=== PATIENT | male | born 1955 | race African-American/Black ===

== ENCOUNTER 2017-10-15 12:13 | Inpatient (IN) | payer OTHER ==
--- NOTE | 2017-10-15 13:59 | PDOC ---
Attending Attestation - HPI HPI: 10/15/17 14:54 The patient is a 62 year old male with history of lower extremity ulcers sent from Wound Care for hospital admission for IV antibiotics to treat LLE cellulitis. He was noted to worsening LLE swelling and erythema with blistering for left foot ulcer. The patient does report subjective fever. No nausea, vomiting, or diaphoresis. <Serenity Cuevas - Last Filed: 10/15/17 15:03> - Resident Resident Name: CarolinaKarolyn - ED Attending Attestation I have performed the following: I have examined & evaluated the patient, The case was reviewed & discussed with the resident, I agree w/resident's findings & plan, Exceptions are as noted - Physicial Exam PE: GENERAL: Awake, alert, and fully oriented, in no acute distress HEAD: No signs of trauma EYES: PERRLA, EOMI, sclera anicteric, conjunctiva clear ENT: Auricles normal inspection, hearing grossly normal, nares patent, oropharynx clear without exudates. Moist mucosa NECK: Normal ROM, supple, no lymphadenopathy, JVD, or masses LUNGS: Breath sounds equal, clear to auscultation bilaterally. No wheezes, and no crackles HEART: Regular rate and rhythm, normal S1 and S2, no murmurs, rubs or gallops ABDOMEN: Soft, nontender, normoactive bowel sounds. No guarding, no rebound. No masses EXTREMITIES: Normal range of motion, +edema, warmth to L foot. +Skin ulcer to side of second toe, no active drainage. No clubbing or cyanosis. No cords, tenderness. NEUROLOGICAL: Cranial nerves II through XII grossly intact. Normal speech. Motor and sensation intact. SKIN: Warm, Dry, normal turgor, no rashes. - Medical Decision Making Pt sent for admission for LLE venous stasis ulcer with cellulitis. He is not diabetic. Started with unasyn and vanco in ED. Wound culture was sent by Dr. Torres prior to ED arrival. Will send basic labs and blood cultures, obtain XR to r/o subcutaneous gas. <Michelle Grant - Last Filed: 10/17/17 10:19>
--- NOTE | 2017-10-15 14:24 | PDOC ---
History of Present Illness - General Chief Complaint: Wound Stated Complaint: TOE WOUND, LAB VARIANCE (WOUND CARE SENT) Time Seen by Provider: 10/15/17 13:59 History Source: Patient Exam Limitations: No Limitations - History of Present Illness Initial Comments: 10/15/17 14:17 62 y/o M with PMH RLE, LLE malleolar ulcers, who was sent to the ED by Wound Care clinic/Dr. Torres for further evaluation of LLE cellulitis. As per patient, over the past week, he has noticed increased edema, erythema and blister formation in his L lateral foot. His blister is approximately 1x0.5in and was fluctuant with yellow pus before his wound care visit. Once his wound was swabbed for cx, most of the pus was removed. Pt also endorses chronic (3 wk) wound on his L second toe with blister formation, which he also had a wound cx completed for, and generalized pain in such affected areas. He also endorses subjective fevers. Otherwise, he denies recent trauma to extremities, ANTHONY, chills , or changes in urinary or bowel function. PMH: as above PsxH: denies meds: none FH: mother's side of family - DM SH: works for [employer] for [employer]. Denies cigarette, alcohol, or recreational drug use. Past History - Past Medical History Allergies/Adverse Reactions: Allergies Allergy/AdvReac Type Severity Reaction Status Date / Time No Known Allergies Allergy Verified 10/15/17 12:37 Home Medications: Ambulatory Orders Silver Sulfadiazine [Silvadene] 85 gm TP DAILY #1 cream..g. 04/30/17 Anemia: No Asthma: No Cancer: No Cardiac Disorders: No CVA: No COPD: No CHF: No Dementia: No Diabetes: No GI Disorders: No Disorders: No HTN: No Hypercholesterolemia: No Liver Disease: No Seizures: No Thyroid Disease: No - Surgical History Abdominal Surgery: No Appendectomy: No Cardiac Surgery: No Cholecystectomy: No Lung Surgery: No Neurologic Surgery: No Orthopedic Surgery: No - Immunization History Immunization Up to Date: Yes - Suicide/Smoking/Psychosocial Hx Smoking History: Never smoked Have you smoked in the past 12 months: No Information on smoking cessation initiated: No Hx Alcohol Use: No Drug/Substance Use Hx: No Substance Use Type: None Review of Systems - Review of Systems Able to Perform ROS?: Yes Is the patient limited Greek proficient: No Constitutional: Yes: Fever Musculoskeletal: Yes: Muscle Pain Integumentary: Yes: Erythema All Other Systems: Reviewed and Negative *Physical Exam - Vital Signs Last Vital Signs Temp Pulse Resp BP Pulse Ox 98.0 F 65 16 129/67 100 10/15/17 12:37 10/15/17 12:37 10/15/17 12:37 10/15/17 12:37 10/15/17 12:37 - Physical Exam Comments: 10/15/17 14:32 in no acute distress General Appearance: Yes: Nourished HEENT: positive: EOMI, PHILIP Neck: positive: Supple Respiratory/Chest: positive: Lungs Clear, Normal Breath Sounds Cardiovascular: positive: Regular Rhythm, Regular Rate, S1, S2 Vascular Pulses: Dorsalis-Pedis (R): 2+, Doralis-Pedis (L): 2+ Gastrointestinal/Abdominal: positive: Normal Bowel Sounds, Flat, Soft Extremity: positive: Pedal Edema (+LLE edema, erythema, 1x0.5), Other (+L lateral foot - mildly fluctuant blister, with yellow pus, surrounding erythema. 1.5x1 inch. L 2nd toe - blister, with erythema, granulation tissue noted ) ED Treatment Course - LABORATORY CBC & Chemistry Diagram: 10/15/17 14:59 10/15/17 14:59 Medical Decision Making - Medical Decision Making 10/15/17 15:15 62 y/o M with PMH RLE, LLE malleolar ulcers, who was sent to the ED by Wound Care clinic/Dr. Torres for further evaluation of LLE cellulitis. As per patient, over the past week, he has noticed increased edema, erythema and blister formation in his L lateral foot. Pt to be treated for cellulitis. Will get labs - cbc, cmp, wound cx has already been sent. will also give a dose of unasyn 3g, vanco 1.25g - loading dose 15mg/kg x 1 will also send L foot XR - r/o OM 10/15/17 16:21 leukopenic - 3.6 rest of labs WNL will need admission for IV Abx 10/15/17 17:22 Case d/w Daylin will place in med-surg ID consult- Dr. Fox *DC/Admit/Observation/Transfer Diagnosis at time of Disposition: Cellulitis Qualifiers: Site of cellulitis: other site Qualified Code(s): L03.818 - Cellulitis of other sites - Discharge Dispostion Condition at time of disposition: Guarded Admit: Yes - Referrals - Patient Instructions - Post Discharge Activity
[2017-10-15 15:18] LABS: BASO % 0.6 % (0-2.0); EOS % 7.3 % (0-4.5); HEMATOCRIT 37.6 % (35.4-49); HEMOGLOBIN 12.5 GM/dL (11.7-16.9); LYMPH % 26.8 % (8-40); MCHC 33.3 g/dl (32.0-35.9); MEAN PLT VOLUME 8.7 fl (7.5-11.1); MONO % 14.1 % (3.8-10.2); NEUT % 51.2 % (42.8-82.8); PLATELET COUNT 179 K/MM3 (134-434); RBC 4.18 M/mm3 (4.00-5.60); RDW 15.1 % (11.9-15.9); WHITE BLOOD COUNT 3.6 K/mm3 (4.0-10.0)
[2017-10-15] MEDS: AMPICILLIN NA/SULBACTAM NA 3 GM in SODIUM CHLORIDE 100 ML IVPB ONE ×2 (15:36→17:26)
[2017-10-15] MEDS: VANCOMYCIN 1,250 MG in DEXTROSE 5%-WATER - 250 ML IVPB ONE ×2 (15:36→17:27)
[2017-10-15 15:43] LABS: ALBUMIN 3.4 g/dl (3.4-5.0); ALK PHOS 77 U/L (45-117); ANION GAP 5 (8-16); BILIRUBIN,TOTAL 1.1 mg/dL (0.2-1.0); BLOOD UREA NITROGEN 13 mg/dL (7-18); CALCIUM 8.3 mg/dL (8.5-10.1); CHLORIDE 107 mmol/L (98-107); CO2 28 mmol/L (21-32); CREATININE 0.7 mg/dL (0.7-1.3); GLUCOSE,RANDOM 102 mg/dL (74-106); POTASSIUM 3.8 mmol/L (3.5-5.1); SGOT/AST 22 U/L (15-37); SGPT/ALT 17 U/L (12-78); SODIUM 140 mmol/L (136-145); TOT PROT 7.4 g/dl (6.4-8.2)
--- NOTE | 2017-10-15 18:09 | HP ---
CHIEF COMPLAINT: left foot wound PCP: none HISTORY OF PRESENT ILLNESS: This is a 62 year old male with PMHx of chronic non-healing foot ulcers who presented to the ED from wound care clinic with a left foot and left foot 2nd toe wound. The patient was not willing to answer any questions pertaining to his wounds stating, "read my chart". Per ED documentation, the patient reported a blister formation to his left lateral foot that was drained today in wound clinic. Wound culture was sent. The patient endorsed subjective fever. He denied any recent trauma to extremities, headache, chills or changes in urinary or bowel function to the ED ER course was notable for: (1) Temp 98, pulse 65, BP 129/67, resp 16, O2 100% on RA (2) WBC 3.6 (3) Blood culture, wound culture pending Recent Travel: denies PAST MEDICAL HISTORY: denies PAST SURGICAL HISTORY: denies Social History: Smoking: denies Alcohol: denies Drugs: denies Family History: Allergies No Known Allergies Allergy (Verified 10/15/17 12:37) HOME MEDICATIONS: Home Medications Medication Instructions Recorded Silver Sulfadiazine [Silvadene] 85 gm TP DAILY #1 cream..g. 04/30/17 REVIEW OF SYSTEMS: patient refused to answer CONSTITUTIONAL: Subjective fever at home. Absent: chills, diaphoresis, generalized weakness, malaise, loss of appetite, weight change SKIN: Left foot wound. Absent: rash, itching, pallor PHYSICAL EXAMINATION Vital Signs - 24 hr 10/15/17 10/15/17 12:37 17:38 Temperature 98.0 F 97.8 F Pulse Rate 65 Pulse Rate [ 59 L Left Apical] Respiratory 16 16 Rate Blood Pressure 129/67 Blood Pressure 114/78 [Left Arm] O2 Sat by Pulse 100 100 Oximetry (%) GENERAL: Awake, alert, and fully oriented, in no acute distress. HEAD: Normal with no signs of trauma. EYES: Refused NECK: Normal range of motion LUNGS: Breath sounds equal, clear to auscultation bilaterally HEART: Regular rate and rhythm, normal S1 and S2 ABDOMEN: Soft, nontender, not distended, normoactive bowel sounds MUSCULOSKELETAL: Normal range of motion at all joints. No bony deformities or tenderness. No CVA tenderness. UPPER EXTREMITIES: 2+ pulses, warm, well-perfused. No cyanosis. No clubbing. No peripheral edema. LOWER EXTREMITIES: Left lower extremity with dressing, patient refused to have dressing removed. Left lower extremity 1+ edema. No calf tenderness. NEUROLOGICAL: Cranial nerves II-XII intact. Normal speech. Normal gait. PSYCHIATRIC: Uncooperative. Poor eye contact. SKIN: Right foot with dry, scaly, rough skin. Laboratory Results - last 24 hr 10/15/17 10/15/17 14:59 14:59 WBC 3.6 L RBC 4.18 Hgb 12.5 Hct 37.6 MCV 90.0 MCH 30.0 MCHC 33.3 RDW 15.1 Plt Count 179 MPV 8.7 Neutrophils % 51.2 Lymphocytes % 26.8 Monocytes % 14.1 H Eosinophils % 7.3 H Basophils % 0.6 Sodium 140 Potassium 3.8 Chloride 107 Carbon Dioxide 28 Anion Gap 5 L BUN 13 Creatinine 0.7 Creat Clearance w eGFR > 60 Random Glucose 102 Calcium 8.3 L Total Bilirubin 1.1 H AST 22 ALT 17 Alkaline Phosphatase 77 Total Protein 7.4 Albumin 3.4 Assessment: This is a 62 year old male with PMHx of chronic non-healing foot ulcers who presented to the ED from wound care clinic with a left foot and left foot 2nd toe wound. Plan: 1) Left foot cellulitis - F/u wound culture - Received unasyn and vancomycin in the ED - F/u ESR, CRP - F/u Left foot x-ray - F/u ID consult - F/u vascular surgery consult 2) Left lower extremity edema - Likely 2/2 cellulitis - F/u left lower extremity doppler to r/o DVT 3) F/E/N: - Monitor electrolytes - Regular diet 4) Prophylaxis: - OOB ambulating - Heparin 5,000u sq tid 5) Dispo: - Requires continued inpatient care CODE STATUS: FULL CODE Visit type - Emergency Visit Emergency Visit: Yes ED Registration Date: 10/15/17 Care time: The patient presented to the Emergency Department on the above date and was hospitalized for further evaluation of their emergent condition. - New Patient This patient is new to me today: Yes Date on this admission: 10/15/17 - Critical Care Critical Care patient: No Hospitalist Screening - Colonoscopy Questionnaire Colonoscopy Questionnaire: Colonoscopy Questionnaire - Patient: 50 - 75 years old and never had a screening colonoscopy: Yes History of colon or rectal polyps, or CA: No History of IBD, Crohn's disease or UC: No History of abdominal radiation therapy as a child: No - Relative: 1 with colon or rectal CA, or polyps at age 60 or younger: No Colon or rectal CA diagnosed at age 45 or younger: No Multiple relatives with colon or rectal CA: No - Outcome: Screening Result: Positive Screen
[2017-10-15] MEDS: HEPARIN NA (PORCINE) 5,000 UNITS/ML 1ML VIAL SQ SCH (21:53)
[2017-10-15 23:30] VITALS: BMI 23.1
[2017-10-16] MEDS: HEPARIN NA (PORCINE) 5,000 UNITS/ML 1ML VIAL SQ SCH ×3 (06:17→21:33)
[2017-10-16 07:54] LABS: CHLORIDE 108 mmol/L (98-107); POTASSIUM 4.2 mmol/L (3.5-5.1); SODIUM 143 mmol/L (136-145)
[2017-10-16 08:12] LABS: EOS % 8.7 % (0-4.5); HEMATOCRIT 35.8 % (35.4-49); LYMPH % 25.2 % (8-40); MCH 30.3 pg (25.7-33.7); MCHC 33.5 g/dl (32.0-35.9); MEAN CELL VOLUME 90.6 fl (80-96); MONO % 12.1 % (3.8-10.2); PLATELET COUNT 174 K/MM3 (134-434); RBC 3.95 M/mm3 (4.00-5.60); RDW 14.6 % (11.9-15.9); WHITE BLOOD COUNT 3.7 K/mm3 (4.0-10.0)
[2017-10-16 08:26] LABS: ALBUMIN 2.8 g/dl (3.4-5.0); ALK PHOS 68 U/L (45-117); ANION GAP 10 (8-16); BILIRUBIN,TOTAL 1.3 mg/dL (0.2-1.0); BLOOD UREA NITROGEN 12 mg/dL (7-18); CALCIUM 8.5 mg/dL (8.5-10.1); CO2 25 mmol/L (21-32); CREATININE 0.8 mg/dL (0.7-1.3); GLUCOSE,RANDOM 126 mg/dL (74-106); SGOT/AST 21 U/L (15-37); SGPT/ALT 20 U/L (12-78); TOT PROT 6.4 g/dl (6.4-8.2)
[2017-10-16] MEDS ORDERED: VANCOMYCIN 1,250 MG in DEXTROSE 5%-WATER - 250 ML IVPB ONE (08:49)
[2017-10-16] MEDS ORDERED: PIPERACILLIN/TAZOB 3.375 GM/50 ML PRE-DOCKED IVPB ONE (08:50)
[2017-10-16] MEDS ORDERED: PIPERACILLIN/TAZOB 3.375 GM 3.375 GM in DEXTROSE 5%-WATER - 50 ML IVPB ONE (09:00)
--- NOTE | 2017-10-16 11:12 | CON.ID ---
Consult Consult Specialty:: infectious disease Referred by:: hospitalist Reason for Consultation:: foot infection - History of Present Illness Chief Complaint: left foot pain for three weeks History of Present Illness: 62 year old man no history of DM, history of chronic venous stasis seen intermittently over last 10 years, most recently seen in wound care from november to may 2017 for left foot wound that healed now with 3 week history of worsening foot pain no fevers seen in wound care yesterday and pus was drained from the lateral aspect of the foot-superficial ulcer noted denies prior medical/surgical history never hospitalized 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 which he attributes to causing his current foot problem no pain with ambulation - History Source History Provided By: Patient Limitations to Obtaining History: No Limitations - Alcohol/Substance Use Hx Alcohol Use: No - Smoking History Smoking history: Never smoked Have you smoked in the past 12 months: No - Social History Usual Living Arrangement: Alone ADL: Independent 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 04/30/17 Family Disease History - Family Disease History Family History: Unremarkable Review of Systems - Review of Systems Constitutional: reports: No Symptoms Eyes: reports: No Symptoms HENT: reports: No Symptoms Neck: reports: No Symptoms Cardiovascular: reports: No Symptoms Respiratory: reports: No Symptoms Gastrointestinal: reports: No Symptoms Genitourinary: reports: No Symptoms Breasts: reports: No Symptoms Reported Musculoskeletal: reports: No Symptoms Integumentary: reports: No Symptoms Physical Exam Vital Signs: Vital Signs Temperature 98.7 F 10/16/17 09:50 Pulse Rate 79 10/16/17 09:50 Respiratory Rate 18 10/16/17 09:50 Blood Pressure 134/73 10/16/17 09:50 O2 Sat by Pulse Oximetry (%) 97 10/15/17 22:00 Constitutional: Yes: Well Nourished, No Distress, Calm Eyes: Yes: Conjunctiva Clear HENT: Yes: Atraumatic, Normocephalic. No: Thrush, Tonsillar Exudate Neck: Yes: Supple Cardiovascular: Yes: Regular Rate and Rhythm Respiratory: Yes: Regular, CTA Bilaterally Gastrointestinal: Yes: Normal Bowel Sounds, Soft ...Rectal Exam: Yes: Deferred Musculoskeletal: Yes: WNL Extremities: Yes: WNL, Other Wound/Incision: Yes: Other (both feet are scaling, fluctuant superficial area on lateral aspect of left foot feet are warm with palpable pulses) Labs: CBC, BMP 10/16/17 06:10 10/16/17 06:10 Imaging - Results X-ray: Report Reviewed (no fracture) Problem List - Problems (1) Cellulitis Code(s): L03.90 - CELLULITIS, UNSPECIFIED Qualifiers: Site of cellulitis: other site Qualified Code(s): L03.818 - Cellulitis of other sites (2) Venous (peripheral) insufficiency Code(s): I87.2 - VENOUS INSUFFICIENCY (CHRONIC) (PERIPHERAL) Assessment/Plan cellulitis with superficial abscess improving continue vancomycin f/u cultures sent from wound care- [facility] to po antiboitcs next 24-48 hours
--- NOTE | 2017-10-16 11:27 | PN ---
Progress Note (short form) - Note Progress Note: Subjective: The patient was seen and examined at the bedside, he denies any issues at this time. Dressing removed from left foot and patient reports it looks better Current Medications Generic Name Dose Route Start Last Admin Trade Name Debbi PRN Reason Stop Dose Admin Heparin Sodium (Porcine) 5,000 unit 10/15/17 22:00 10/16/17 06:17 Heparin - SQ Not Given TID YOLANDA Vancomycin HCl 1,250 mg/ 250 mls @ 250 mls/hr 10/16/17 22:00 Dextrose IVPB BID [facility] Protocol Objective: Vital Signs Period Temp Pulse Resp BP Sys/Bello Pulse Ox Last 24 Hr 97.6 F-98.7 F 59-79 16-18 114-135/67-85 97-100 Physical Exam: General: NAD, A&Ox3 Lungs: CTA bilaterally Heart: RRR, S1S2 Abd: Soft, non-tender, non-distended. Normoactive bowel sounds Ext: Left lower extremity edema, erythema. Left lateral foot with wound, small amount of yellowish pus. Left foot, 2nd digit with medial open wound, no drainage Neuro: CN 2-12 intact CBCD WBC 3.7 K/mm3 (4.0-10.0) L 10/16/17 06:10 RBC 3.95 M/mm3 (4.00-5.60) L 10/16/17 06:10 Hgb 12.0 GM/dL (11.7-16.9) 10/16/17 06:10 Hct 35.8 % (35.4-49) 10/16/17 06:10 MCV 90.6 fl (80-96) 10/16/17 06:10 MCHC 33.5 g/dl (32.0-35.9) 10/16/17 06:10 RDW 14.6 % (11.9-15.9) 10/16/17 06:10 Plt Count 174 K/MM3 (134-434) 10/16/17 06:10 MPV 9.0 fl (7.5-11.1) 10/16/17 06:10 CMP Sodium 143 mmol/L (136-145) 10/16/17 06:10 Potassium 4.2 mmol/L (3.5-5.1) 10/16/17 06:10 Chloride 108 mmol/L (98-107) H 10/16/17 06:10 Carbon Dioxide 25 mmol/L (21-32) 10/16/17 06:10 Anion Gap 10 (8-16) 10/16/17 06:10 BUN 12 mg/dL (7-18) 10/16/17 06:10 Creatinine 0.8 mg/dL (0.7-1.3) 10/16/17 06:10 Creat Clearance w eGFR > 60 (>60) 10/16/17 06:10 Random Glucose 126 mg/dL (74-106) H D 10/16/17 06:10 Calcium 8.5 mg/dL (8.5-10.1) 10/16/17 06:10 Total Bilirubin 1.3 mg/dL (0.2-1.0) H 10/16/17 06:10 AST 21 U/L (15-37) 10/16/17 06:10 ALT 20 U/L (12-78) 10/16/17 06:10 Alkaline Phosphatase 68 U/L (45-117) 10/16/17 06:10 Total Protein 6.4 g/dl (6.4-8.2) 10/16/17 06:10 Albumin 2.8 g/dl (3.4-5.0) L 10/16/17 06:10 Assessment: This is a 62 year old male with PMHx of chronic non-healing foot ulcers who presented to the ED from wound care clinic with a left foot and left foot 2nd toe wound. Plan: 1) Left foot cellulitis - F/u wound culture (from outpatient office 10/15) - Continue Vancomycin for now - ESR, CRP elevated - Left foot x-ray with no evidence of osteo - Appreciate ID consult - F/u vascular surgery consult 2) Left lower extremity edema - Likely 2/2 cellulitis - Left lower extremity doppler negative for DVT 3) F/E/N: - Monitor electrolytes - Regular diet 4) Prophylaxis: - OOB ambulating - Heparin 5,000u sq tid 5) Dispo: - Requires continued inpatient care CODE STATUS: FULL CODE Visit type - Emergency Visit Emergency Visit: Yes ED Registration Date: 10/15/17 Care time: The patient presented to the Emergency Department on the above date and was hospitalized for further evaluation of their emergent condition. - New Patient This patient is new to me today: No - Critical Care Critical Care patient: No
[2017-10-16] MEDS ORDERED: PT OWN MED DRAWER 7, Y5N ONE (21:22)
[2017-10-16] MEDS: VANCOMYCIN 1,250 MG in DEXTROSE 5%-WATER - 250 ML IVPB SCH (21:32)
[2017-10-17] MEDS: HEPARIN NA (PORCINE) 5,000 UNITS/ML 1ML VIAL SQ SCH ×3 (06:09→22:00)
[2017-10-17 07:42] LABS: EOS % 11.1 % (0-4.5); HEMATOCRIT 39.5 % (35.4-49); HEMOGLOBIN 13.1 GM/dL (11.7-16.9); LYMPH % 27.7 % (8-40); MCHC 33.2 g/dl (32.0-35.9); MEAN CELL VOLUME 90.4 fl (80-96); MEAN PLT VOLUME 9.3 fl (7.5-11.1); MONO % 13.7 % (3.8-10.2); NEUT % 46.5 % (42.8-82.8); PLATELET COUNT 171 K/MM3 (134-434); RBC 4.37 M/mm3 (4.00-5.60); RDW 14.5 % (11.9-15.9); WHITE BLOOD COUNT 3.2 K/mm3 (4.0-10.0)
[2017-10-17] MEDS: VANCOMYCIN 1,250 MG in DEXTROSE 5%-WATER - 250 ML IVPB SCH ×2 (09:41→21:20)
--- NOTE | 2017-10-17 10:17 | PN ---
Progress Note (short form) - Note Progress Note: Subjective: The patient was seen and examined at the bedside, he denies any issues at this time. Dressing removed and patient still with purulent drainage from left lateral foot wound Current Medications Generic Name Dose Route Start Last Admin Trade Name Debbi PRN Reason Stop Dose Admin Heparin Sodium (Porcine) 5,000 unit 10/15/17 22:00 10/17/17 06:09 Heparin - SQ Not Given TID YOLANDA Vancomycin HCl 1,250 mg/ 250 mls @ 166.667 mls/hr 10/16/17 22:00 10/17/17 09: 41 Dextrose IVPB 166.667 mls/hr BID YOLANDA Administration Protocol Objective: Vital Signs Period Temp Pulse Resp BP Sys/Bello Pulse Ox Last 24 Hr 97.9 F-98.7 F 60-82 18-20 122-138/64-80 97 Physical Exam: General: NAD, A&Ox3 Lungs: CTA bilaterally Heart: RRR, S1S2 Abd: Soft, non-tender, non-distended. Normoactive bowel sounds Ext: Left lower extremity edema, erythema. Left lateral foot with wound, still with yellowish pus. Left foot, 2nd digit with medial open wound, no drainage Neuro: CN 2-12 intact CBCD WBC 3.2 K/mm3 (4.0-10.0) L 10/17/17 06:00 RBC 4.37 M/mm3 (4.00-5.60) 10/17/17 06:00 Hgb 13.1 GM/dL (11.7-16.9) 10/17/17 06:00 Hct 39.5 % (35.4-49) 10/17/17 06:00 MCV 90.4 fl (80-96) 10/17/17 06:00 MCHC 33.2 g/dl (32.0-35.9) 10/17/17 06:00 RDW 14.5 % (11.9-15.9) 10/17/17 06:00 Plt Count 171 K/MM3 (134-434) 10/17/17 06:00 MPV 9.3 fl (7.5-11.1) 10/17/17 06:00 CMP Sodium 143 mmol/L (136-145) 10/16/17 06:10 Potassium 4.2 mmol/L (3.5-5.1) 10/16/17 06:10 Chloride 108 mmol/L (98-107) H 10/16/17 06:10 Carbon Dioxide 25 mmol/L (21-32) 10/16/17 06:10 Anion Gap 10 (8-16) 10/16/17 06:10 BUN 12 mg/dL (7-18) 10/16/17 06:10 Creatinine 0.8 mg/dL (0.7-1.3) 10/16/17 06:10 Creat Clearance w eGFR > 60 (>60) 10/16/17 06:10 Random Glucose 126 mg/dL (74-106) H D 10/16/17 06:10 Calcium 8.5 mg/dL (8.5-10.1) 10/16/17 06:10 Total Bilirubin 1.3 mg/dL (0.2-1.0) H 10/16/17 06:10 AST 21 U/L (15-37) 10/16/17 06:10 ALT 20 U/L (12-78) 10/16/17 06:10 Alkaline Phosphatase 68 U/L (45-117) 10/16/17 06:10 Total Protein 6.4 g/dl (6.4-8.2) 10/16/17 06:10 Albumin 2.8 g/dl (3.4-5.0) L 10/16/17 06:10 Microbiology 10/15/17 11:00 Foot - Left Lateral Gram Stain - Final 10/15/17 11:00 Foot - Left Lateral Wound Culture - Preliminary Mr S Aureus Assessment: This is a 62 year old male with PMHx of chronic non-healing foot ulcers who presented to the ED from wound care clinic with a left foot and left foot 2nd toe wound. Plan: 1) Left foot MRSA cellulitis - Isolation precautions - Continue Vancomycin, still with some drainage from left lateral wound - ESR, CRP elevated - Left foot x-ray with no evidence of osteo - Appreciate ID consult - F/u vascular surgery consult 2) Left lower extremity edema - Improving - Likely 2/2 cellulitis - Left lower extremity doppler negative for DVT 3) F/E/N: - Monitor electrolytes - Regular diet 4) Prophylaxis: - OOB ambulating - Heparin 5,000u sq tid 5) Dispo: - Requires continued inpatient care CODE STATUS: FULL CODE Visit type - Emergency Visit Emergency Visit: Yes ED Registration Date: 10/15/17 Care time: The patient presented to the Emergency Department on the above date and was hospitalized for further evaluation of their emergent condition. - New Patient This patient is new to me today: No - Critical Care Critical Care patient: No
--- NOTE | 2017-10-17 12:08 | PN ---
Progress Note (short form) - Note Progress Note: still some erythema and pain left foot lateral aspect Vital Signs Period Temp Pulse Resp BP Sys/Bello Pulse Ox Last 24 Hr 97.9 F-98.7 F 60-82 18-20 122-138/64-80 97 cor-rrr lungs clear abd soft,nt ext +erythema, still some fluctuance lateral aspect of the foot CBC, BMP 10/17/17 06:00 10/16/17 06:10 Microbiology 10/15/17 14:59 Blood - Peripheral Venous Blood Culture - Preliminary NO GROWTH OBTAINED AFTER 24 HOURS, INCUBATION TO CONTINUE FOR 4 DAYS. 10/15/17 15:00 Blood - Peripheral Venous Blood Culture - Preliminary NO GROWTH OBTAINED AFTER 24 HOURS, INCUBATION TO CONTINUE FOR 4 DAYS. wound culture MRSA a/p MRSA cellulitis/soft tissue infection- continue vancomycin MRSA is clindamycin resistant, bactrim is an oral option once foot improves vanco level in am Problem List - Problems (1) Cellulitis Code(s): L03.90 - CELLULITIS, UNSPECIFIED Qualifiers: Site of cellulitis: other site Qualified Code(s): L03.818 - Cellulitis of other sites (2) Venous (peripheral) insufficiency Code(s): I87.2 - VENOUS INSUFFICIENCY (CHRONIC) (PERIPHERAL)
[2017-10-18] MEDS: HEPARIN NA (PORCINE) 5,000 UNITS/ML 1ML VIAL SQ SCH ×2 (06:07→13:26)
[2017-10-18 08:31] LABS: HEMATOCRIT 42.4 % (35.4-49); HEMOGLOBIN 14.3 GM/dL (11.7-16.9); MCH 30.2 pg (25.7-33.7); MCHC 33.6 g/dl (32.0-35.9); MEAN CELL VOLUME 89.9 fl (80-96); PLATELET COUNT 197 K/MM3 (134-434); RBC 4.72 M/mm3 (4.00-5.60); RDW 14.6 % (11.9-15.9); WHITE BLOOD COUNT 3.6 K/mm3 (4.0-10.0)
[2017-10-18 08:50] LABS: ALBUMIN 3.1 g/dl (3.4-5.0); ANION GAP 10 (8-16); BILIRUBIN,TOTAL 0.9 mg/dL (0.2-1.0); BLOOD UREA NITROGEN 10 mg/dL (7-18); CHLORIDE 103 mmol/L (98-107); CO2 28 mmol/L (21-32); CREATININE 0.9 mg/dL (0.7-1.3); GLUCOSE,RANDOM 89 mg/dL (74-106); POTASSIUM 4.1 mmol/L (3.5-5.1); SGOT/AST 21 U/L (15-37); SODIUM 141 mmol/L (136-145); TOT PROT 7.8 g/dl (6.4-8.2)
[2017-10-18 08:54] LABS: ALK PHOS 83 U/L (45-117); SGPT/ALT 17 U/L (12-78)
--- NOTE | 2017-10-18 10:37 | PN ---
Progress Note (short form) - Note Progress Note: minimal foot discomfort Vital Signs Period Temp Pulse Resp BP Sys/Bello Pulse Ox Last 24 Hr 97.9 F-98.8 F 71-79 18-20 120-131/74-90 97-97 cor-rrr lungs clear abd soft,nt ext no swelling left foot ,no fluctuance, minimal drainage from blister site CBC, BMP 10/18/17 08:00 10/18/17 08:00 Microbiology 10/15/17 14:59 Blood - Peripheral Venous Blood Culture - Preliminary NO GROWTH OBTAINED AFTER 48 HOURS, INCUBATION TO CONTINUE FOR 3 DAYS. 10/15/17 15:00 Blood - Peripheral Venous Blood Culture - Preliminary NO GROWTH OBTAINED AFTER 48 HOURS, INCUBATION TO CONTINUE FOR 3 DAYS. wound culture MRSA a/p MRSA cellulitis/soft tissue infection- superficial blister drained in wound care , vancomycin day #4 MRSA is clindamycin resistant, plan bactim ds one po bid for 10 days to complete 2 weeks wound care f/u with Dr Torres d/w Dr Torres d/w hospitalist Problem List - Problems (1) Cellulitis Code(s): L03.90 - CELLULITIS, UNSPECIFIED Qualifiers: Site of cellulitis: other site Qualified Code(s): L03.818 - Cellulitis of other sites (2) Venous (peripheral) insufficiency Code(s): I87.2 - VENOUS INSUFFICIENCY (CHRONIC) (PERIPHERAL)
[2017-10-18] MEDS ORDERED: PT OWN MED DRAWER 7, Y5N ONE (11:06)
[2017-10-18] MEDS: VANCOMYCIN 1,250 MG in DEXTROSE 5%-WATER - 250 ML IVPB SCH (11:15)
--- NOTE | 2017-10-18 13:56 | PN ---
Progress Note (short form) - Note Progress Note: Vascular Surgery Pt seen and examined. Left foot looks so much better. Cellulitis resolved. Could not express any further drainage from left lateral foot. Will go home on Po antibiotics. Follow up in wound care clinic on wednesday. Please make pt appt prior to DC [phone] John shaffer dO
[2017-10-18 15:33] VITALS: BP 131/79; PULSE 89; TEMP 98.5
--- NOTE | 2017-10-19 08:11 | DS ---
Physical Exam: SUBJECTIVE: Patient seen and examined. He denies fever, chills, he wants to go home, still has increased tenderness to left lateral foot . OBJECTIVE: Vital Signs Period Temp Pulse Resp BP Sys/Bello Pulse Ox Last 24 Hr 98.5 F 89 18 131/79 97 PE Neuro: alert,awake, cn 2-12intact Pulm: CTAB CV: s1 s2 rrr no mrg Abd: s nt nd + bs Ext: L foot 2nd toe tenderness, L foot lateral wound w/ purulent drainage and ++ tenderness Laboratory Results - last 24 hr 10/18/17 10/18/17 10/18/17 08:00 08:00 09:00 WBC 3.6 L RBC 4.72 Hgb 14.3 Hct 42.4 MCV 89.9 MCH 30.2 MCHC 33.6 RDW 14.6 Plt Count 197 MPV 9.0 Sodium 141 Potassium 4.1 Chloride 103 Carbon Dioxide 28 Anion Gap 10 BUN 10 Creatinine 0.9 Creat Clearance w eGFR > 60 Random Glucose 89 D Calcium 9.0 Total Bilirubin 0.9 D AST 21 ALT 17 Alkaline Phosphatase 83 D Total Protein 7.8 D Albumin 3.1 L Vancomycin Pre-Dose 11.448 H HOSPITAL COURSE: Date of Admission:10/15/17 Date of Discharge: 10/19/17 Minutes to complete discharge: 37 Discharge Summary Reason For Visit: CELLULITIS BILATERAL FOOT AND TOES Hospital Course: Initial Hospital Course: Briefly, this 62 year old male with PMHx of chronic non-healing foot ulcers presented to the ED from wound care clinic with a left foot and left foot 2nd toe wound. The patient reported a blister formation to his left lateral foot that was drained today in wound clinic. Wound culture was sent. The patient endorsed subjective fever. Subsequent Hospital Course/Progress Note/DC Summary: Assessment: 62 year old male with PMHx of chronic non-healing foot ulcers admitted from wound care clinic with a left foot and left foot 2nd toe wound. Plan: 1. Left foot MRSA cellulitis - s/p vanco - ESR, CRP noted - Home w Bactrim DS BID x10 days - Wound care f/u Sunday 10/22 - D/w Dr. Torres, ID 2. Left lower extremity edema - Improved - Likely 2/2 cellulitis - Left lower extremity doppler neg Dispo: - Home with above plan and abx - PT aware and agrees to above plan Condition: Stable - Instructions Diet, Activity, Other Instructions: Please return to the ED for any new, persistent, or worsening symptoms. Follow up with your PCP in 1 week Take antibiotics as directed and until completed Follow up in wound care this Wednesday Referrals: John Torres MD [Staff Physician] - Disposition: HOME - Home Medications Comprehensive Discharge Medication List: Ambulatory Orders Silver Sulfadiazine [Silvadene] 85 gm TP DAILY #1 cream..g. 04/30/17 Sulfamethoxazole/Trimethoprim [Bactrim Ds -] 1 tab PO BID #20 tablet 10/18/17 This patient is new to me today: Yes Date on this admission: 10/19/17 Emergency Visit: Yes ED Registration Date: 10/15/17 Care time: The patient presented to the Emergency Department on the above date and was hospitalized for further evaluation of their emergent condition. Critical Care patient: No - Discharge Referral Referred to [facility] Yes Physician Referral: John Torres DO ([facility])
--- NOTE | 2017-10-19 12:50 | EKG ---
Test Reason : Blood Pressure : / mmHG Vent. Rate : 054 BPM Atrial Rate : 054 BPM P-R Int : 124 ms QRS Dur : 094 ms QT Int : 454 ms P-R-T Axes : 018 029 042 degrees QTc Int : 430 ms SINUS BRADYCARDIA OTHERWISE NORMAL ECG NO PREVIOUS ECGS AVAILABLE Confirmed by MD ALEXANDRA, MEGHNA ([id number]) on 10/19/2017 12:49:22 PM Referred By: Confirmed By:MEGHNA MORRIS MD
== END 2017-10-18 16:04 | disposition home or self-care (01) | DRG 300 ==
LOC: JER 12:13 → JERBED 17:34 → J6S 21:06
PROVIDERS: ADMIT Internal Medicine; ATTEND Nurse Practitioner Acute Care
DX: I87.2 Venous insufficiency (chronic) (peripheral) (principal); L03.116 Cellulitis of left lower limb; L97.529 Non-pressure chronic ulcer of other part of left foot with unspecified severity; B95.62 Methicillin resistant Staphylococcus aureus infection as the cause of diseases classified elsewhere; Z83.3 Family history of diabetes mellitus
CPT/HCPCS: 10060; 36415; 73630-TC-LT; 80053; 85025; 85027; 85651; 86140; 87040; 87070; 87186; 87205; 93005; 93010; 93971-TC; 99285-25; G0480; J1644